=== PATIENT | female | born 1995 | race Caucasian/White ===

== ENCOUNTER → 2018-09-14 | Outpatient (REF) | payer BC | LOC: M LAB LCGH 12:32 | PROVIDERS: ATTEND Nurse Practitioner Family | DX: L91.8 Other hypertrophic disorders of the skin (principal) ==

== ENCOUNTER → 2018-10-30 | Outpatient (REF) | LOC: M LAB LCGH 15:42 | PROVIDERS: ATTEND Obstetrics & Gynecology | DX: O82 Encounter for cesarean delivery without indication (principal) ==